=== PATIENT | male | born 1990 | race Caucasian/White ===

== ENCOUNTER 2017-03-08 08:45 | Emergency (ER) | payer SELFPAY ==
[~2017-03-08] VITALS: Ht 172.7 cm; Wt 104.3 kg
[~2017-03-08 08:45] MED LIST: METO25TA4 PO
--- NOTE | 2017-03-08 09:43 | PHYS DOC ---
Past Medical History Past Medical History: Hypertension Past Surgical History: Other Additional Past Surgical Histo: Inguinal hernia as . Additional Information: Nonsmoker Alcohol Use: Rarely Drug Use: None Adult General Chief Complaint Chief Complaint: NAUSEA/VOMITING/DIARRHA HPI HPI Patient is a 26 year old male who presents with nausea and vomiting for 3 days. He had 4 episodes of vomiting yesterday. He had 1 episode of diarrhea yesterday. He reports periumbilical pain. He also had fever up to 100.1F with mild productive cough and nasal congestion. He denies urinary symptoms, back pain, headache, shortness of breath, sore throat, or ear pain. He has a history of hypertension but does not take any medications currently. He does not have a PCP. Review of Systems Review of Systems Constitutional: Reports low-grade fever. Eyes: Denies change in visual acuity, redness, or eye pain. [] HENT: Denies ear pain or sore throat. Reports nasal congestion. Respiratory: Denies shortness of breath. Reports productive cough. Cardiovascular: Denies chest pain, palpitations or edema. [] GI: Denies bloody stools. Reports nausea, vomiting, diarrhea, and periumbilical pain. : Denies dysuria, hematuria or urinary frequency. [] Musculoskeletal: Denies back pain or joint pain. [] Integument: Denies rash or skin lesions. [] Neurologic: Denies headache, focal weakness or sensory changes. [] Endocrine: Denies polyuria or polydipsia. [] Psych: Denies anxiety or depression. [] All systems reviewed and negative unless otherwise stated in the HPI. Current Medications Current Medications Current Medications Medications (Trade) Dose Ordered Sig/Jeronimo Start Time Stop Time Status Last Admin Dose Admin Ondansetron HCl (Zofran Odt) 4 mg 1X ONCE 03/08/17 09:45 03/08/17 09:46 DC 03/08/17 09:49 4 MG Allergies Allergies Allergies Coded Allergies Type Severity Reaction Last Updated Verified No Known Drug Allergies 08/30/14 No Physical Exam Physical Exam Constitutional: Well developed, well nourished, no acute distress, non-toxic appearance. [] HENT: Normocephalic, atraumatic, bilateral external ears normal, oropharynx moist, no oral exudates, nose normal. Bilateral TMs without erythema or bulging. There is no posterior pharyngeal erythema or tonsillar edema. Eyes: PERRLA, EOMI, conjunctiva normal, no discharge. [] Neck: Normal range of motion, no tenderness, supple, no stridor. [] Cardiovascular: Heart rate regular rhythm, no murmur [] Lungs & Thorax: Bilateral breath sounds clear to auscultation without wheezes, rales, or rhonchi. Abdomen: Bowel sounds normal, soft, no tenderness, no masses, no pulsatile masses. There is no tenderness to palpation of the abdomen. Skin: Warm, dry, no erythema, no rash. [] Back: No tenderness, no CVA tenderness. [] Extremities: No tenderness, no cyanosis, no clubbing, ROM intact, no edema. [] Neurologic: Alert and oriented X 3, normal motor function, normal sensory function, no focal deficits noted. [] Psychologic: Affect normal, judgement normal, mood normal. [] Current Patient Data Vital Signs Vital Signs Date Time Temp Pulse Resp B/P Pulse Ox O2 Delivery O2 Flow Rate FiO2 03/08/17 09:27 98.5 99 18 155/77 97 Room Air 98.5 EKG EKG [] Radiology/Procedures Radiology/Procedures REASON: n/v/d, cough PROCEDURE: ACUTE ABDOMEN SERIES Acute abdominal series to include a PA chest radiograph 03/08/2017 Clinical History: Nausea and cough for 3 days A PA digital radiograph of the chest was obtained. Supine and erect AP digital radiographs of the abdomen/pelvis were obtained. No previous studies are available for comparison. The cardiac and mediastinal silhouettes are within normal limits in size and configuration. No pulmonary infiltrate is seen. No pleural effusion or pneumothorax is noted. The abdominal bowel gas pattern is nonobstructive. A moderate amount of stool is seen throughout the colon. There is no evidence of free air. No radiopaque calculus is seen. The osseous structures are grossly intact. Impression: Nonobstructive bowel gas pattern. Course & Med Decision Making Course & Med Decision Making Pertinent Labs and Imaging studies reviewed. (See chart for details) The patient is a 26-year-old male who presents with nausea, vomiting, diarrhea, abdominal pain, and URI symptoms for 3 days. He is currently afebrile. On exam, his abdomen is soft, nonsurgical, and nontender. Lungs are clear to auscultation. Acute abdominal x-ray is unremarkable. His symptoms improved with ODT Zofran. He appears to have a viral illness. He is discharged with prescription for Zofran. He is instructed to increase fluids, advance diet slowly. Return precautions were discussed. He verbalizes understanding and agrees with plan. Dragon Disclaimer Selvin Disclaimer This electronic medical record was generated, in whole or in part, using a voice recognition dictation system. Departure Departure Impression: Primary Impression: Viral syndrome Disposition: HOME, SELF-CARE Condition: IMPROVED Referrals: NO PCP (PCP) Patient Instructions: Viral Syndrome Additional Instructions: Your x-ray today was normal. You appear to have a viral illness causing your symptoms. Please use the prescribed nausea medication as needed for nausea or vomiting. Please drink lots of liquids. Once you are able to tolerate liquids well, advance your diet. Please start with the BRAT diet: Bananas, rice, applesauce, and toast. Please follow-up with a primary care provider if your symptoms continue. Return to emergency department if you have severe pain, excessive vomiting, bloody stool, high fevers, or other new or concerning symptoms. Scripts Ondansetron (Zofran Odt)4 Mg Tab.rapdis1 Tab SL Q8HRS #10 TAB Prov:MISTY EMERY 03/08/17 MISTY EMERY Mar 08, 2017 09:43
[2017-03-08] MEDS ORDERED: ONDANSETRON ODT 4 MG TAB.RAPDIS. PO ONE (09:45)
--- NOTE | 2017-03-08 10:07 | RAD ---
Acute abdominal series to include a PA chest radiograph 03/08/2017 Clinical History: Nausea and cough for 3 days A PA digital radiograph of the chest was obtained. Supine and erect AP digital radiographs of the abdomen/pelvis were obtained. No previous studies are available for comparison. The cardiac and mediastinal silhouettes are within normal limits in size and configuration. No pulmonary infiltrate is seen. No pleural effusion or pneumothorax is noted. The abdominal bowel gas pattern is nonobstructive. A moderate amount of stool is seen throughout the colon. There is no evidence of free air. No radiopaque calculus is seen. The osseous structures are grossly intact. Impression: Nonobstructive bowel gas pattern.
[2017-03-08] MEDS ORDERED: ONDA4TAB10 SL (10:54)
[2017-03-08 11:20] VITALS: BP 148/71
== END 2017-03-08 11:26 | disposition home or self-care (01) ==
LOC: ER 08:45
DX: B34.9 Viral infection, unspecified (principal); R11.2 Nausea with vomiting, unspecified; R11.0 Nausea; R19.7 Diarrhea, unspecified; I10 Essential (primary) hypertension
CPT/HCPCS: 74022; 99284; Q0162

== ENCOUNTER 2019-11-30 21:58 | Emergency (ER) | payer SELFPAY ==
[~2019-11-30] VITALS: Ht 175.3 cm; Wt 104.3 kg
[~2019-11-30 21:58] MED LIST changes: +ONDA4TAB10 SL
[2019-11-30 22:00] VITALS: BP 176/92
[2019-11-30] MEDS ORDERED: OSEL75CA PO (23:38)
--- NOTE | 2019-11-30 23:38 | PHYS DOC ---
Past Medical History Past Medical History: Hypertension (OMAR SANTOYO APRN) Past Surgical History: Other Additional Past Surgical Histo: Inguinal hernia as infant. (OMAR SANTOYO APRN) Alcohol Use: Rarely Drug Use: None (OMAR SANTOYO APRN) Attending Signature I have participated in the care of this patient and I have reviewed and agree with all pertinent clinical information above including history, exam, and recommendations. (JONAH STEPHEN MD) Adult General Chief Complaint Chief Complaint: FLU SYMPTOM HPI HPI Patient is a 28 year old male who presents to the ED today with fever body aches chills and a cough that began yesterday. (OMAR SANTOYO APRN) Review of Systems Review of Systems Constitutional: Reports fever and body aches and chills Eyes: Denies change in visual acuity, redness, or eye pain [] HENT: Denies nasal congestion or sore throat [] Respiratory: Reports cough, denies shortness of breath [] Cardiovascular: No additional information not addressed in HPI [] GI: Denies abdominal pain, nausea, vomiting, bloody stools or diarrhea [] : Denies dysuria or hematuria [] Musculoskeletal: Denies back pain or joint pain [] Integument: Denies rash or skin lesions [] Neurologic: Denies headache, focal weakness or sensory changes [] All other systems were reviewed and found to be within normal limits, except as documented in this note. (OMAR SANTOYO APRN) Current Medications Current Medications Current Medications Medications (Trade) Dose Ordered Sig/Jeronimo Start Time Stop Time Status Last Admin Dose Admin Acetaminophen (Tylenol) 1,000 mg 1X ONCE 12/01/19 00:00 11/30/19 23:59 DC 11/30/19 23:56 1,000 MG Ibuprofen (Motrin) 800 mg 1X ONCE 12/01/19 00:00 11/30/19 23:59 DC 11/30/19 23:56 800 MG Prednisone (Prednisone) 50 mg 1X ONCE 12/01/19 00:00 11/30/19 23:59 DC 11/30/19 23:56 50 MG (JONAH STEPHEN MD) Allergies Allergies Allergies Coded Allergies Type Severity Reaction Last Updated Verified No Known Drug Allergies 08/30/14 No (JONAH STEPHEN MD) Physical Exam Physical Exam Constitutional: Well developed, well nourished, no acute distress, non-toxic appearance. [] HENT: Normocephalic, atraumatic, bilateral external ears normal, oropharynx moist, no oral exudates, nose normal. [] Eyes: PERRLA, EOMI, conjunctiva normal, no discharge. [] Neck: Normal range of motion, no tenderness, supple, no stridor. [] Cardiovascular:Heart rate regular rhythm, no murmur [] Lungs & Thorax: Bilateral breath sounds clear to auscultation [] Abdomen: Bowel sounds normal, soft, no tenderness, no masses, no pulsatile masses. [] Skin: Warm, dry, no erythema, no rash. [] Back: No tenderness, no CVA tenderness. [] Extremities: No tenderness, no cyanosis, no clubbing, ROM intact, no edema. [] Neurologic: Alert and oriented X 3, normal motor function, normal sensory function, no focal deficits noted. [] Psychologic: Affect normal, judgement normal, mood normal. [] (OMAR SANTOYO APRN) Current Patient Data Vital Signs Vital Signs Date Time Temp Pulse Resp B/P (MAP) Pulse Ox O2 Delivery O2 Flow Rate FiO2 11/30/19 22:00 101.6 117 22 176/92 (120) 98 Room Air 101.6 (JONAH STEPHEN MD) EKG EKG [] (OMAR SANTOYO APRN) Radiology/Procedures Radiology/Procedures [] (OMAR SANTOYO APRN) Course & Med Decision Making Course & Med Decision Making Pertinent Labs and Imaging studies reviewed. (See chart for details) This is a 28-year-old male patient presenting to the ED today with symptoms silvana picious of influenza. Temperature 100.6. Will be discharged with Tamiflu. Tylenol/Motrin recommended. Follow-up with PCP in 1-2 weeks. (OMAR SANTOYO APRN) Dragon Disclaimer Dragon Disclaimer This electronic medical record was generated, in whole or in part, using a voice recognition dictation system. (OMAR SANTOYO APRN) Departure Departure Impression: Primary Impression: Viral syndrome Additional Impressions: Fever Cough Disposition: HOME, SELF-CARE Condition: STABLE Referrals: NO PCP (PCP) follow up with your doctor in 1-2 weeks Patient Instructions: Cough, Adult, [id number], Fever, Adult, [id number] Additional Instructions: You were evaluated in the emergency room with symptoms suspicious of a viral illness likely influenza. We put you on Tamiflu, take it as prescribed. Follow- up with your doctor in one week. Take Tylenol/Ibuprofen for fever or pain. Push fluids, rest. Scripts Oseltamivir Phosphate (TAMIFLU) 75 Mg Capsule 1 CAP PO BID, #10 CAP Prov: OMAR SANTOYO APRN 11/30/19 Problem Qualifiers Additional Impressions: Fever Fever type: unspecified Qualified Codes: R50.9 - Fever, unspecified OMAR SANTOYO [employer] Nov 30, 2019 23:38 JONAH STEPHEN MD Dec 02, 2019 07:49
[2019-12-01] MEDS ORDERED: ACETAMINOPHEN 500 MG TABLET PO ONE
[2019-12-01] MEDS ORDERED: predniSONE 10 MG TABLET PO ONE
[2019-12-01] MEDS ORDERED: IBUPROFEN 400 MG TABLET. PO ONE
== END 2019-11-30 23:59 | disposition home or self-care (01) ==
LOC: ER 21:58
DX: B34.9 Viral infection, unspecified (principal); R50.9 Fever, unspecified; R05 Cough; I10 Essential (primary) hypertension; Z98.890 Other specified postprocedural states
CPT/HCPCS: 99284; J7512

== ENCOUNTER 2020-08-16 13:53 | Emergency (ER) | payer SELFPAY ==
[~2020-08-16] VITALS: Ht 203.2 cm; Wt 113.6 kg
[~2020-08-16 13:53] MED LIST changes: +OSEL75CA PO
[2020-08-16 15:28] VITALS: BP 163/85
--- NOTE | 2020-08-16 16:29 | PHYS DOC ---
Past Medical History Past Medical History: Hypertension Past Surgical History: Other Additional Past Surgical Histo: Inguinal hernia as . Smoking Status: Never Smoker Alcohol Use: Rarely Drug Use: None General Adult EDM: Chief Complaint: OTHER COMPLAINTS HPI: HPI: Patient is a 29 year old Male who presents with today with feeding his 6-month-old and she was laying on his leg and he was using his left arm to feed her the bottle, when his left arm began to tingle and feel like it was asleep or numb. He states that symptoms had subsided except for in his hand feels a little tingly. He states it was up the arm and going into pretty much all of his fingers. He denies chest pain, shortness of breath, dizziness, headache, syncope, falling, hitting his head, abdominal pain, nausea, vomiting, diarrhea, fever, vision changes, focal weakness. Is a history of hypertension but does not take medication for this. Review of Systems: Review of Systems: Constitutional: Denies fever or chills. [] Eyes: Denies change in visual acuity. [] HENT: Denies nasal congestion or sore throat. [] Respiratory: Denies cough or shortness of breath. [] Cardiovascular: Denies chest pain or edema. [] GI: Denies abdominal pain, nausea, vomiting, bloody stools or diarrhea. [] : Denies dysuria. [] Musculoskeletal: Denies back pain or joint pain. [] Integument: Denies rash. [] Neurologic: Denies headache, focal weakness or sensory changes. Numbness and tingling to left arm. [] Endocrine: Denies polyuria or polydipsia. [] Lymphatic: Denies swollen glands. [] Psychiatric: Denies depression or anxiety. [] Heart Score: Risk Factors: Risk Factors: DM, Current or recent (<one month) smoker, HTN, HLP, family history of CAD, obesity. Risk Scores: Score 0 - 3: 2.5% MACE over next 6 weeks - Discharge Home Score 4 - 6: 20.3% MACE over next 6 weeks - Admit for Clinical Observation Score 7 - 10: 72.7% MACE over next 6 weeks - Early Invasive Strategies Allergies: Allergies: Allergies Coded Allergies Type Severity Reaction Last Updated Verified No Known Drug Allergies 08/30/14 No Physical Exam: PE: Constitutional: Well developed, well nourished, no acute distress, non-toxic appearance. [] HENT: Normocephalic, atraumatic, bilateral external ears normal, oropharynx moist, no oral exudates, nose normal. [] Eyes: PERRLA, EOMI, conjunctiva normal, no discharge. [] Neck: Normal range of motion, no tenderness, supple, no stridor. [] Cardiovascular:Heart rate regular rhythm, no murmur [] Lungs & Thorax: Bilateral breath sounds clear to auscultation [] Abdomen: Bowel sounds normal, soft, no tenderness, no masses, no pulsatile masses. [] Skin: Warm, dry, no erythema, no rash. [] Back: No tenderness, no CVA tenderness. [] Extremities: No tenderness, no cyanosis, no clubbing, ROM intact, no edema. [] Neurologic: Alert and oriented X 3, normal motor function, normal sensory function, no focal deficits noted. [] Psychologic: Affect normal, judgement normal, mood normal. Normal physical exam. [] Current Patient Data: Vital Signs: Vital Signs Date Time Temp Pulse Resp B/P (MAP) Pulse Ox O2 Delivery O2 Flow Rate FiO2 08/16/20 15:28 98.2 89 163/85 (111) 98 98.2 08/16/20 15:27 20 Room Air EKG: EKG: [] Radiology/Procedures: Radiology/Procedures: [] Impression: [facility] [address] [place] [address] IMAGING REPORT Signed PATIENT: PATRICIA GARZA ACCOUNT: [id number] : 1990 LOCATION: ER AGE: 29 SEX: M EXAM STATUS: REG ER ORD. PHYSICIAN: PRADEEP MADRID APRN REASON: NUMBNESS AND TINGLING PROCEDURE: CT HEAD WO CONTRAST Examination: CT HEAD WO CONTRAST History: Reason: NUMBNESS AND TINGLING / Spl. Instructions: / History: Comparison/Correlation: None Findings: Axial images of the head were obtained without contrast. Coronal reformatted images were provided. Ventricles are normal size. No intracranial hemorrhage, midline shift, or mass effect. Bony structures are intact. Partial opacification of the paranasal sinuses. Impression: No suspicious intracranial process. Electronically signed by: Ming Hickman MD (08/16/2020 4:51 PM) [id number] DICTATED and SIGNED BY: MING HICKMAN MD DATE: 08/16/20 165 Course & Med Decision Making: Course & Med Decision Making Pertinent Labs and Imaging studies reviewed. (See chart for details) See HPI. Patient denies any pain. There is no unilateral swelling. Radial pulses are strong and present. Cap refill is less than 2 seconds. Alert and oriented x4. Ambulatory with a steady gait. 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 [] Dragon Disclaimer: Dragon Disclaimer: This electronic medical record was generated, in whole or in part, using a voice recognition dictation system. NIHSS Stroke Scale NIH Stroke Scale: NIH Stroke Scale Response (Comments) Value Level of Consciousness: 0 Alert/Responsive 0 LOC Questions: 0 Answers both correctly 0 LOC Commands: 0 Performs both tasks 0 Best Gaze: 0 Normal 0 Visual: 0 No visual loss 0 Facial Palsy: 0 Normal, symmetrical 0 Motor - Left Arm 0 No drift 0 Motor - Right Arm 0 No drift 0 Motor - Left Leg 0 No drift 0 Motor: Right Leg 0 No drift 0 Limb Ataxia: 0 Absent 0 Sensory: 0 No loss 0 Best Language: 0 Normal 0 Dysathria: 0 Normal 0 Extinction and Inattention: 0 Normal 0 Total 0 Departure Departure Impression: Primary Impression: Tingling of left upper extremity Disposition: HOME, SELF-CARE Condition: STABLE Referrals: NO PCP (PCP) Patient Instructions: Cervical Radiculopathy Additional Instructions: Follow-up with primary care physician as soon as possible. If symptoms worsen or you began having weakness on one side or more numbness and tingling on 1 side of your body need to return to the emergency room. Justicifation of Admission Dx: Justifications for Admission: Justification of Admission Dx: N/A PARDEEP MADRID APRN Aug 16, 2020 16:29
--- NOTE | 2020-08-16 16:54 | RAD ---
Examination: CT HEAD WO CONTRAST History: Reason: NUMBNESS AND TINGLING / Spl. Instructions: / History: Comparison/Correlation: None Findings: Axial images of the head were obtained without contrast. Coronal reformatted images were provided. Ventricles are normal size. No intracranial hemorrhage, midline shift, or mass effect. Bony structures are intact. Partial opacification of the paranasal sinuses. Impression: No suspicious intracranial process. Electronically signed by: Davie Vela MD (08/16/2020 4:51 PM) [id number]
[2020-08-16 17:14] LABS: BASO % 1 % (0-3); EOS # 0.4 x10^3/uL (0.0-0.7); EOS % 6 % (0-3); HEMATOCRIT 46.6 % (39.0-53.0); HEMOGLOBIN 16.2 g/dL (13.0-17.5); LYMPH % 29 % (24-48); MEAN CORPUSCULAR HEMOGLOBIN 30 pg (25-35); MEAN CORPUSCULAR HGB CONC 35 g/dL (31-37); MEAN CORPUSCULAR VOLUME 85 fL (79-100); MONO # 0.5 x10^3/uL (0.0-1.1); MONO % 7 % (0-9); NEUT % 57 % (31-73); PLATELET COUNT 250 x10^3/uL (140-400); RED BLOOD COUNT 5.46 x10^6/uL (4.30-5.70); RED CELL DISTRIBUTION WIDTH 13.8 % (11.5-14.5)
[2020-08-16 18:01] LABS: CALCIUM 8.5 mg/dL (8.5-10.1); POTASSIUM 4.2 mmol/L (3.5-5.1)
[2020-08-16 18:05] LABS: ALBUMIN 3.5 g/dL (3.4-5.0); ALBUMIN/GLOBULIN RATIO 1.1 (1.0-1.7); TOTAL BILIRUBIN 0.5 mg/dL (0.2-1.0); TOTAL PROTEIN 6.8 g/dL (6.4-8.2)
--- NOTE | 2020-08-16 18:37 | EKG ---
[facility] [address] [place] [address] Test Date: 2020-08-16 Test Time: 17:21:50 Pat Name: PATRICIA GARZA Department: Room: Gender: M Vp Software Support: : 1990 Requested By: PRADEEP MADRID Order Number: [id number] Reading MD: Measurements Intervals [place] Rate: 70 P: MN: QRS: 85 QRSD: 94 T: 9 QT: 362 QTc: 393 Interpretive Statements IRREGULAR RHYTHM, NO P-WAVE FOUND OTHERWISE NORMAL ECG RI6.02 No previous ECG available for comparison
== END 2020-08-16 18:39 | disposition home or self-care (01) ==
LOC: ER 13:53
DX: R20.2 Paresthesia of skin (principal); I10 Essential (primary) hypertension; Z98.890 Other specified postprocedural states
CPT/HCPCS: 36415; 70450; 80053; 84484; 85025; 93005; 99285